=== PATIENT | male | born 1995 | race Hispanic/Latino ===

== ENCOUNTER → 2017-04-21 | Outpatient (CLI) | payer OTHER ==
--- NOTE | 2017-04-21 10:40 | REP ---
LUMBOSACRAL SPINE: Five views of the lumbosacral spine are performed. There is no compression fracture. There is no malalignment. There is slight reversal of a normal lumbar lordosis which may indicate spasm. There is no spondylolysis or spondylolisthesis. Disc spaces appear well preserved. Posterior elements are intact. IMPRESSION: Mild reversal of normal lumbar lordosis may indicate spasm. No other abnormalities are seen. Signed by Alexei Chua MD 04/21/2017 03:27 P
== END ==
LOC: M RAD 09:09
PROVIDERS: ATTEND Surgery
DX: M54.5 Low back pain (principal)